=== PATIENT | male | born 1985 | race Caucasian/White ===

== ENCOUNTER 2024-01-28 17:04 | Emergency (ER) | payer BC, SELFPAY ==
[2024-01-28 17:12] VITALS: BP 131/60; PULSE 60; RESP 18; TEMP 36.4; O2SAT 97; BMI 27.6
--- NOTE | 2024-01-28 17:20 | ED_ITS ---
HPI - Back Pain/Injury General Time Seen by Provider: 17:20 Date Seen: 01/28/24 Chief Complaint: Back Injury/Pain Stated Complaint: lower back pain Time Seen by Provider: 01/28/24 17:16 Source: patient and RN notes reviewed Mode of arrival: ambulatory Limitations: no limitations History of Present Illness HPI Narrative: This 38-year-old male is coming in with severe low back pain, he points to the left lower lumbar spine, states he almost feels like there is a knife stabbing in there. The pain goes all the way down into his toes. He really does feel it in the outside of the thigh and calf but pain is going all the way into his toes. Does feel some numbness tingling. He has felt like he has had to stop walking at times, difficult to say if it is because of pain. He notes about a week ago he felt like he tweaked his back, was doing squats. This morning he woke up and he was in excruciating pain. Had no old Flexeril at home, tried that around noon. If tried [id number] medicines and cannot get comfortable at all. He has to lie prone for any comfort. He is feeling the pain going from the buttock all the way down the leg into the toes. He has maintained control of his bowel and bladder. He has not had a history of sciatica before but has had some low back pain. He does have degenerative disc disease in his cervical spine, has had an MRI of that in 2021. Patient is a nonsmoker, no history of cancer, no trauma, no fevers or chills, no recent illness. MD elicited complaint: back pain Related Data Home Medications ?Medication ?Instructions ?Recorded ?Confirmed No Known Home Medications 01/28/24 01/28/24 Allergies Allergy/AdvReac Type Severity Reaction Status Date / Time No Known Drug Allergies Allergy Verified 01/28/24 17:11 Review of Systems Narrative: As per HPI. Exam Const: Vital Signs, click to edit/add: Vital Signs - 24 hr 01/28/24 17:12 Temperature 97.6 F Pulse Rate [Pulse Oximeter] 60 Respiratory Rate 18 Blood Pressure [Le ft Upper Arm] 131/60 Pulse Oximetry 97 Oxygen Delivery Me thod Room Air This 38-year-old male is observed ambulating in, is able to walk but gait mildly antalgic to left. In exam room 2, he is lying on his abdomen on the bed, lying flat. Strength in his feet, ankles and knees with both flexion extension are all preserved and normal, they are 5/5. He has no midline tenderness of his back. He has some left lower lumbar tenderness along the lower margin of the lumbar spine in the paraspinous area. There is no palpable abnormalities such is mass. No lower extremity edema. Vitals are reviewed, he is afebrile. Still seems to have normal sensation. Documenting provider has reviewed patient's vital signs: yes Course Course ED Course: Have discussed with patient and his red flag warnings that would require emergent imaging. He does not have these. We discussed mainstay of treatment is relative rest, use of steroids. He has tolerated oxycodone in the past, do think he is going to need a bit of pain management until the steroids take affect. Will provide him more Flexeril, they note there is was outdated. We did review that the Flexeril alone may not be enough but in conjunction with the other medicines, may provide some relief for him. He will use [id number] NSAIDs, Tylenol and will send oxycodone 5mg 10 pills, prednisone 5 day course at 20 mg and the 15 tablets of Flexeril from [facility]. He has no need for any emergent neuro imaging at this time, do not recommend any imaging. The understand if he is not improving with conservative management, can not get MRI and consider potential injection. At this time, will give him 30 mg IV Toradol and 5 mg oral Valium to help ease his symptoms. He understands it will take prednisone a while to work. Vital Signs Vital signs: Initial Vital Signs Temperature 97.6 F 01/28/24 17:12 Temperature Source Temporal Artery Scan 01/28/24 17:12 Pulse Rate 60 01/28/24 17:12 Pulse Rhythm Regular 01/28/24 17:12 Respiratory Rate 18 01/28/24 17:12 Blood Pressure 131/60 01/28/24 17:12 Blood Pressure Mean 83 01/28/24 17:12 Pulse Oximetry 97 01/28/24 17:12 Oxygen Delivery Method Room Air 01/28/24 17:12 Vital Signs Temperature 97.6 F 01/28/24 17:12 Pulse Rate 60 01/28/24 17:12 Respiratory Rate 18 01/28/24 17:12 Blood Pressure 131/60 01/28/24 17:12 Pulse Oximetry 97 01/28/24 17:12 Oxygen Delivery Method Room Air 01/28/24 17:12 Temperature 97.6 F 01/28/24 17:12 Pulse Rate 60 01/28/24 17:12 Respiratory Rate 18 01/28/24 17:12 Blood Pressure 131/60 01/28/24 17:12 Pulse Oximetry 97 01/28/24 17:12 Oxygen Delivery Method Room Air 01/28/24 17:12 Medications Administered Medications: Generic Name Dose Route Start Last Admin Trade Name Linnea PRN Reason Stop Dose Admin Diazepam 5 mg 01/28/24 17:30 01/28/24 17:42 Diazepam 5 Mg Tablet PO 01/28/24 17:31 5 mg ONCE ONE Administration Ketorolac Tromethamine 30 mg 01/28/24 17:30 01/28/24 17:42 Ketorolac 30 Mg/Ml Inj IM 01/28/24 17:31 30 mg ONCE ONE Administration Discharge Plan Discharge Clinical Impression: Lumbar radiculopathy Patient Disposition: Home, Self-Care Condition: Stable Instructions: Lumbar Radiculopathy (ED) Additional Instructions: Start prednisone 20 mg twice a day, take with food. Can use Flexeril per prescription. Take Tylenol 1000 mg 3 times a day baseline for pain. Can supplement with ibuprofen per bottle directions as needed. Have written for a few tablets of oxycodone, this is narcotic and no driving or operating machinery while using. Narcotics can cause constipation, may need to use senna and or MiraLax while on oxycodone. Please contact your primary clinic, Physical therapy can be very helpful with lumbar radiculopathy, referral can be placed by your clinic. If you are not improving, have further concerns, your primary care provider can order MRI imaging of your lumbar spine. If you do notice any of the warning findings as listed in discharge information, need to seek emergent re-evaluation. Activity Level: Activity as Tolerated Prescriptions: No Action No Known Home Medications Stand Alone Forms: [facility] Info Instructions
[2024-01-28] MEDS: KETOROLAC 30 MG/ML inj IM (17:42)
[2024-01-28] MEDS: diazePAM 5 MG TABLET PO (17:42)
== END 2024-01-28 17:52 | disposition home or self-care (01) ==
PROVIDERS: Emergency Provider Family Medicine
DX: M54.16 Radiculopathy, lumbar region (principal)
CPT/HCPCS: 96372; 99282; 99284; J1885